=== PATIENT | female | born 1980 | race Caucasian/White ===

== ENCOUNTER 2017-11-23 09:32 | Emergency (ER) | payer BC, SELFPAY ==
[2017-11-23 09:34] VITALS: BP 162/107; PULSE 93; RESP 18; TEMP 37.1; O2SAT 98; BMI 47.7
--- NOTE | 2017-11-23 10:08 | ED.DCSUM_ITS ---
- ER Visit Summary Date of Service: 11/23/17 Chief Complaint: [] Rectal pain for a few days History of Present Illness: The patient is a 37 F [] history of rectal abscesses multiple I&D's, she reports she has had rectal pain for a few days she reports 1 month ago she thought that it was draining and it stopped she has had these drained by her surgeons Dr. Meng and Dr. King she has been told if these recur she will require more definitive operative debridement. She has no history of diabetes no history of immunocompromise in condition she is able to have normal bowel movement she is current on her menstrual cycle she denies she has no abdominal pain, she indicates that the areas that is sore throat over prior scar incision Physical Examination: [] She is resting in the bed no distress her BMI is about 50 HEENT chest abdomen unremarkable nontender rectal exam shows 1 there are 2 or 3's old scars the one that is most medial seems to be slightly tender the entire area is nodular there is no obvious fluctuance or drainage or warmth or redness some mild tenderness to palpation over this area. The rectal exam itself shows no fullness or signs of mucosal abscess stool is soft rectal tone is normal the rest of exams unremarkable Test Results: [] Emergency Department Course and Treatment: [] Long conversation the patient I explained we could try to I&D this versus antibiotic she declined the I&D she was started on Bactrim [place] high-fiber diet she will follow with her surgeons as again she told me that her surgeons have informed her she requires operative debridement should these recur and she prefers just to see them for outpatient management she will return if her symptoms change or intensify Treatment Plan: [] Disposition: [] Home stable Impression: [] Ductal pain possible early sid-rectal abscess This note was generated with [employer] dictation software. It may contain incorrect words, spelling, and punctuation that were not noted in review of the chart prior to signing ED Disposition - Plan for ED Patient: Chief Complaint: Abscess Referrals: NOT,DEFINED [Primary Care Provider] -
--- NOTE | 2017-11-23 10:08 | ED.DEP ---
ED Disposition - Plan for ED Patient: Chief Complaint: Abscess Instructions: ED Bhumika Anal Abscess Abx Only Prescriptions: Hydrocodone Bitart/Apap 5-325 [[place] 5/325] 1 - 2 tab PO Q4H PRN PRN #12 tab PRN Reason: Pain Smz/Tmp Ds [Bactrim Ds] 1 tablet PO BID #20 tablet Referrals: NOT,DEFINED [Primary Care Provider] -
[2017-11-23] MEDS: morphine 8 MG/ML Syringe SC (10:10)
[2017-11-23] MEDS: Smz/Tmp Ds Tablet 1 TABLET PO (10:10)
--- NOTE | 2017-11-23 10:14 | DCINST.ED_ITS ---
ED Disposition - Plan for ED Patient: Chief Complaint: Abscess Instructions: ED Bhumika Anal Abscess Abx Only Prescriptions: Hydrocodone Bitart/Apap 5-325 [[place] 5/325] 1 - 2 tab PO Q4H PRN PRN #12 tab PRN Reason: Pain Smz/Tmp Ds [Bactrim Ds] 1 tablet PO BID #20 tablet Referrals: NOT,DEFINED [Primary Care Provider] -
--- NOTE | 2017-11-23 10:16 | DCINST.ED_ITS ---
ED Disposition - Plan for ED Patient: Chief Complaint: Abscess Instructions: ED Bhumika Anal Abscess Abx Only Prescriptions: Hydrocodone Bitart/Apap 5-325 [[place] 5/325] 1 - 2 tab PO Q4H PRN PRN #12 tab PRN Reason: Pain Smz/Tmp Ds [Bactrim Ds] 1 tablet PO BID #20 tablet Referrals: NOT,DEFINED [Primary Care Provider] -
[2017-11-23 10:25] VITALS: BP 121/77; PULSE 68; RESP 15; O2SAT 98
== END 2017-11-23 10:26 | disposition home or self-care (01) ==
LOC: ED 10:18
PROVIDERS: Emergency Provider Emergency Medicine
DX: K62.89 Other specified diseases of anus and rectum (principal)
CPT/HCPCS: 96372; 99283

== ENCOUNTER 2017-11-25 10:01 | Emergency (ER) | payer BC, SELFPAY ==
[2017-11-25] VITALS (7 sets, daily range): BP systolic 109–159; BP diastolic 54–99; PULSE 86–106; RESP 11–22; TEMP 36.5; O2SAT 94–100; BMI 42.1
--- NOTE | 2017-11-25 10:29 | CT_ITS ---
STUDY: CT PELVIS WITH CONTRAST REASON FOR EXAM: Female, 37 years old. Perirectal abscess. RADIATION DOSAGE (If Supplied By Facility): CTDIvol = ( 28.21 ) mGy, DLP = ( 1567.78 ) mGycm TECHNIQUE: Transaxial imaging of the pelvis was performed without oral contrast. 100 ml of Isovue 300 contrast was administered intravenously. Multiplanar coronal and sagittal images were reformatted. Individualized dose optimization techniques were used for this CT. COMPARISON: None. FINDINGS: Normal urinary bladder. Normal visualized small intestine. There is a 4.3 cm x 2.8 cm soft tissue induration along the right lateral aspect of the rectum extending inferiorly. A central lucency is seen suggestive of abscess with surrounding soft tissue inflammatory change. There is no pelvic fluid. There is no pelvic lymphadenopathy or mass lesion. 3.3 cm right ovarian cyst. Normal visualized pelvic arteries. Normal abdominal wall. Normal osseous structures. CT/Pelvis WITH IV Contrast IMPRESSION: Perirectal abscess measuring 4.3 cm x 2.8 cm along the right aspect of the rectum. Electronically Signed: Desmond Ferrer MD at 12:32 EDT Tel [phone], Service support ,
[2017-11-25 10:48] LABS: Absolute Lymphocyte Count 1.38 X10^3/ul (0.83-4.51); Absolute Neutrophil Count 11.2 X10^3/uL (2.0-7.7); Basophil# 0.02 X10^3/uL; Basophil% 0.1 % (0-1); Eosinophil# 0.14 X10^3/uL; Hematocrit 41.4 % (37-47); Hemoglobin 13.5 g/dl (12.0-15.0); Lymphocyte # 1.38 X10^3/ul (4.0); Lymphocyte % 10.1 % (19-41); Mean Corp Hgb Conc 32.6 g/gl (32-36); Mean Corpuscular Hgb 29.2 pg (27.0-32.0); Mean Corpuscular Volume 89.4 fL (81-99); Mean Platelet Vol. 9.2 fl (6.2-12.0); Monocyte# 0.88 X10^3/uL; Monocyte% 6.5 % (0-10); Neutrophil # 11.15 X10^3/uL (2.7-7.7); POSITIVE COUNT NO; POSITIVE DIFFERENTIAL NO; POSITIVE MORPHOLOGY NO; Platelet Count 218 K/mm3 (150-450); RBC Distribution Width CV 13.5 % (11.6-14.6); RBC Distribution Width SD 43.6 fl (35.1-43.9); Red Blood Count 4.63 M/mm3 (4.2-5.4); White Blood Count 13.6 K/mm3 (4.4-11.0)
[2017-11-25] MEDS: 0.9% Normal Saline 1,000 ML 1000 ML IV (10:57)
[2017-11-25] MEDS: Ondansetron 4 MG/2 ML Vial IV (10:57)
[2017-11-25] MEDS: HYDROmorphone 1 MG/ML Syringe IV ×2 (10:57→13:05)
[2017-11-25 11:01] LABS: Anion Gap 9 (5-15); BUN 9 mg/dL (7-18); BUN/Creat Ratio 9.6 RATIO (10-20); Calcium,Total 8.5 mg/dL (8.5-10.1); Chloride 102 mmol/L (98-107); Creatinine, Serum 0.94 mg/dL (0.55-1.02); EST Glomerular Filtration Rate 71 mL/min (>60); Est Glom Filt Rate - Afr Amer 86 mL/min (>60); Estimated Creatinine Clearance 77.45 ml/min; Glucose 89 mg/dL (74-106); Potassium 4.1 mmol/L (3.5-5.1); Sodium Level 138 mmol/L (136-145)
[2017-11-25 11:16] LABS: Pregnancy, Serum, hCG Quali. NEGATIVE Negative (0-9 Nonpreg)
[2017-11-25] MEDS: Amox/Clavulanate 875 MG Tablet PO (13:05)
--- NOTE | 2017-11-25 13:23 | ED.DCSUM_ITS ---
- ER Visit Summary Date of Service: 11/25/17 Chief Complaint: Abscess History of Present Illness: The patient is a 37 F who reports that she has an abscess right buttock that began approximately 5 days ago. She reports that the areas feels hot and there is a sharp pain that is 10 out of 10 with movement or laying on it. 6 out of 10 at rest. She taken [place] without relief. She complains of a fever of 100.1? and nausea. She denies any other complaints. Patient was seen in the emergency department 2 days ago and was placed on Bactrim. At that time it was felt that there was not an abscess that was amenable to drainage. Physical Examination: Vitals: Stable. Afebrile. General: Well-nourished and well-developed. Head: Normocephalic atraumatic. Neck: Supple, no lymphadenopathy. No JVD. Nontender. Cardiovascular: Regular rate and rhythm. No murmurs. Respiratory: No respiratory distress. Clear to auscultation bilaterally. Abdominal: Soft, nontender, nondistended, normal bowel sounds. No guarding, rebound, or peritoneal signs. Back: Nontender. Extremities: Nontender, no edema. Skin: The inferior portion of her right buttock medially has a approximately 5 mm draining area. There is surrounding scar tissue that makes the exam difficult. There is no appreciable induration or fluctuance.. Neurologic: Alert and oriented ?3. Cranial nerves II through XII are intact. Normal strength and sensation. Psych: Normal affect. Test Results: CBC is remarkable for a white count 13.6 with 82 segmented neutrophils and 10 leukocytes. Chem-[address] is normal[address] test negative. CT pelvis with IV contrast only shows a 4.3 x 2.8 cm abscess right lateral aspect of her rectum extending inferiorly. Emergency Department Course and Treatment: Patient was given Dilaudid and Zofran. She had procedural sedation undertaken profile. She had an incision and drainage performed. She tolerated this well. She was given Augmentin p.o. Treatment Plan: Patient was discussed with Dr. King who reviewed the CT prior to the drainage. She will be discharged on Augmentin and Percocet. Instructed follow-up them in 2 days for a wound check. Return to the emergency department for any worsening symptoms. Disposition: To home in improved and stable condition. Impression: 1. Right buttock abscess. 2. I&D. 3. Procedural sedation. Procedure Note: Abscess was cleansed with chlorhexidine soap. Anesthetized with 1% lidocaine without epinephrine. An elliptical incision was made with an 11 scalpel blade. A moderate amount of pus was drained. Curved hemostats were used to break up loculations. The wound was copiously irrigated with normal saline. It was loosely packed with iodoform gauze. The patient tolerated it well. This note was generated with [employer] dictation software. It may contain incorrect words, spelling, and punctuation that were not noted in review of the chart prior to signing ED Disposition - Plan for ED Patient: Chief Complaint: Other, Pain/Inj Instructions: ED Abscess IandD Prescriptions: Oxycodone HCl/Acetaminophen [Percocet 5/325] 1 tablet PO Q6H PRN PRN 5 Days #20 tablet PRN Reason: Pain Ondansetron [Zofran Odt] 4 mg PO Q8H PRN PRN #10 tablet PRN Reason: Nausea Amox/Clavulanate Tablet [Augmentin Tablet] 875 mg PO Q12H #20 tablet Referrals: Torsten Moore MD [STAFF PHYSICIAN] - 2 Days for wound check
[2017-11-25] MEDS: Propofol 200 MG/20 ML Vial IV BOLUS (13:58)
== END 2017-11-25 14:42 | disposition home or self-care (01) ==
PROVIDERS: Emergency Provider Emergency Medicine
DX: L02.31 Cutaneous abscess of buttock (principal); Z79.2 Long term (current) use of antibiotics; Z79.891 Long term (current) use of opiate analgesic
CPT/HCPCS: 10060; 72193; 80048; 84703; 85025; 96361; 96374; 96375; 96376; 99152; 99284; J7030; Q9967; A4216; J2405

== ENCOUNTER → 2019-04-28 | Outpatient (CLI) | payer BC, SELFPAY ==
[2017-11-25 10:02] VITALS: BMI 42.1
[2019-05-04 17:11] LABS: HPV Reflexed? NOT INDICATED
== END | disposition home or self-care (01) ==
LOC: LABSPEC 13:44
PROVIDERS: Visit Provider Obstetrics & Gynecology
DX: Z12.4 Encounter for screening for malignant neoplasm of cervix (principal)
CPT/HCPCS: 87624; 88175; G0145